=== PATIENT | female | born 1990 | race Caucasian/White ===

== ENCOUNTER 2016-10-20 13:11 | Inpatient (IN) | payer OTHER ==
--- NOTE | 2016-10-20 13:46 | C.PDOC ---
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 pt was seen by oral surgeon on , has sutures on right side removed with purulent discharge per patient; pt was given an iv dose of clinamycin in office yesterday and sent home on clindamycin in addition to amoxicillin. pt sts swellng worse today; surgeon not in office today, and pt sent to ED for further evaluation. Time Seen by Provider: 10/20/16 13:23 Chief Complaint (Nursing): Dental Pain History Per: Patient History/Exam Limitations: no limitations Onset/Duration Of Symptoms: Days (2) Current Symptoms Are (Timing): Worse Pain Scale Rating Of: 9 Quality: Positive for: "Pain" Recent travel outside of the [place]: No Past Medical History Reviewed: Historical Data, Nursing Documentation, Vital Signs Vital Signs: Last Vital Signs Temp 98.5 F 10/20/16 13:18 Pulse 81 10/20/16 13:18 Resp 18 10/20/16 13:18 BP 123/84 10/20/16 13:18 Pulse Ox 100 10/20/16 14:12 - Medical History PMH: Asthma, HTN Other PMH: lupus, rsd Surgical History: Other Surgeries: right arm lymph node removal Family History: States: Unknown Family Hx - Social History Hx Tobacco Use: No Hx Alcohol Use: Yes Hx Substance Use: No - Immunization History Hx Tetanus Toxoid Vaccination: No Hx Influenza Vaccination: No Hx Pneumococcal Vaccination: No Review Of Systems Constitutional: Positive for: Fever, Chills ENT: Positive for: Mouth Pain, Mouth Swelling. Negative for: Ear Pain, Throat Pain, Throat Swelling Cardiovascular: Negative for: Chest Pain Respiratory: Negative for: Cough Gastrointestinal: Positive for: Nausea. Negative for: Abdominal Pain Neurological: Negative for: Weakness, Numbness Physical Exam - Physical Exam Appears: Non-toxic, Toxic Skin: Warm, Dry Head: Atraumatic, Normacephalic Eye(s): bilateral: Normal Inspection Teeth: Other (bilateral facial swelling, right more than left. right side face warm and firm to touch. pt unable to open mouth more than approx half inch due to pain. ) Neck: Normal ROM Chest: Symmetrical, No Tenderness Cardiovascular: Rhythm Regular, No Murmur Respiratory: Normal Breath Sounds, No Rales, No Rhonchi, No Stridor, No Wheezing Neurological/Psych: Oriented x3, Normal Speech, Normal Cognition ED Course And Treatment - Laboratory Results Result Diagrams: 10/20/16 13:58 10/20/16 13:58 Urine POC: Negative O2 Sat by Pulse Oximetry: 100 Medical Decision Making Medical Decision Making: discussed with Dr Galeas; requesting admission for iv antibiotic for facial cellulitis and dental abscess. Disposition Discussed With .: Minerva Galeas Doctor Will See Patient In The: Hospital - Disposition Disposition: HOSPITALIZED Disposition Time: 14:41 Condition: STABLE - Clinical Impression Clinical Impression: Dental abscess, Facial cellulitis Decision To Admit - Pt Status Changed To: Hospital Disposition Of: Observation - . Bed Request Type: Regular Admitting Physician: Minerva Galeas Patient Diagnosis: Dental abscess, Facial cellulitis
[2016-10-20 14:04] LABS: BASO # 0.1 K/uL (0.0-0.2); BASO % 0.5 % (0.0-2.0); EOS # 0.1 K/uL (0.0-0.7); EOS % 1.1 % (0.0-4.0); HEMATOCRIT 31.6 % (34.0-47.0); LYMPH # 1.3 K/uL (1.0-4.3); LYMPH % 12.7 % (20.0-40.0); MEAN CELL VOLUME 85.7 fL (81.0-99.0); MEAN CORPUSCULAR HEMOGLOBIN 28.6 pg (27.0-31.0); MEAN CORPUSCULAR HGB CONC 33.3 g/dL (33.0-37.0); MEAN PLATELET VOLUME 7.9 fL (7.2-11.7); MONO # 0.8 K/uL (0.0-0.8); MONO % 7.3 % (0.0-10.0); RED CELL DISTRIBUTION WIDTH 14.1 % (11.5-14.5); WHITE BLOOD COUNT 10.3 K/uL (4.8-10.8)
[2016-10-20] MEDS ORDERED: Bupivacaine 0.5% Inj(30mL) INFIL ONE (14:04)
[2016-10-20] MEDS ORDERED: Clindamycin 600mg/50ml D5W 600 MG/50 ML VIAL IVPB ONE (14:10)
[2016-10-20 14:13] LABS: CHLORIDE 100 mmol/L (98-107)
[2016-10-20 14:14] LABS: SODIUM 136 mmol/L (132-148)
[2016-10-20 14:15] LABS: POTASSIUM 4.8 mmol/L (3.6-5.2)
[2016-10-20 14:16] LABS: GFR AFRICAN-AMERICAN > 60
[2016-10-20 14:17] LABS: BLOOD UREA NITROGEN 6 mg/dL (7-17); CALCIUM 8.6 mg/dl (8.6-10.4); CARBON DIOXIDE 27 mmol/L (22-30); GLUCOSE,RANDOM 78 mg/dL (65-105)
[2016-10-20] MEDS ORDERED: HYDROmorphone 0.5 mg/0.5 ml ISec IVP STA (14:35)
[2016-10-20] MEDS ORDERED: HYDROmorphone 1 mg/ml ISec ONE (14:39)
[2016-10-20] MEDS ORDERED: Sodium Chloride 0.9% 1,000 ML IV SCH (15:45)
--- NOTE | 2016-10-20 16:12 | CT ---
PROCEDURE: CT scan maxillofacial skeleton dated 10/20/2016. HISTORY: Right-sided facial swelling s/p dental extraction COMPARISON: No prior TECHNIQUE: Contiguous axial CT images of the maxillofacial bones were obtained. Coronal and sagittal reformats were generated. Radiation dose: Total exam DLP = 695.22 mGy-cm. This CT exam was performed using one or more of the following dose reduction techniques: Automated exposure control, adjustment of the mA and/or kV according to patient size, and/or use of iterative reconstruction technique. FINDINGS: The current study reveals an and ill-defined soft tissue area of swelling/infiltration along the buccal surface of the right mandible and overlying subcutaneous tissues of the right cheek. There also appears to be small amount of fluid and bubbles of air. Findings felt to represent a small early abscess. This area measures approximately 15.4 x 6 mm on and best seen on axial image number [id number]. There also appear to be induration of the overlying master muscle and subcutaneous infiltration suggesting an overlying cellulitis. . Soft tissue air and some bubbles of air fill residual sockets (presumably related to extraction of posterior molar teeth bilaterally) along the posterior not mandible bilaterally. . The infiltration changes extend inferiorly into the subcutaneous fat in the right submandibular region. The left nilo mandible outpatient are study is degraded holes air but that distal abscess of the right These findings were discussed with emergency room RACHEL Carmichael at approximately 4:07 p.m. with written down and read back verification. . The paranasal sinuses are well-developed and currently well-aerated. No fluid levels seen to suggest acute sinusitis. Minor mucosal thickening both maxillary antra as well as a few ethmoid air cells. Orbits and contents grossly unremarkable Impression: There is a small abscess along the buccal surface right mandible with overlying soft tissue swelling/induration and infiltration of the subcutaneous fat consistent with cellulitis is well. Status post bilateral last mandibular molar teeth and/or wisdom teeth extraction as above. Emergency room PA aware of these findings.
[2016-10-20] MEDS ORDERED: HYDROmorphone 0.5 mg/0.5 ml ISec IVP PRN (18:33)
[2016-10-20] MEDS: Dextrose 5%/0.45% NS 1,000 ML IV SCH (19:00)
[2016-10-20] MEDS ORDERED: DiphenhydrAMINE 50 mg/ml Inj IVP STA (20:08)
[2016-10-20] MEDS: Clindamycin 600mg/50ml D5W 600 MG/50 ML VIAL IVPB SCH (21:07)
[2016-10-21] MEDS: Clindamycin 600mg/50ml D5W 600 MG/50 ML VIAL IVPB SCH ×4 (01:17→20:00)
[2016-10-21] MEDS: Dextrose 5%/0.45% NS 1,000 ML IV SCH ×2 (06:42→15:04)
[2016-10-21 08:09] LABS: BASO % 0.1 % (0.0-2.0); EOS # 0.2 K/uL (0.0-0.7); EOS % 2.8 % (0.0-4.0); HEMATOCRIT 28.8 % (34.0-47.0); LYMPH # 0.9 K/uL (1.0-4.3); LYMPH % 14.2 % (20.0-40.0); MEAN CELL VOLUME 85.8 fL (81.0-99.0); MEAN CORPUSCULAR HEMOGLOBIN 28.7 pg (27.0-31.0); MEAN CORPUSCULAR HGB CONC 33.4 g/dL (33.0-37.0); MEAN PLATELET VOLUME 8.3 fL (7.2-11.7); MONO # 0.9 K/uL (0.0-0.8); MONO % 13.7 % (0.0-10.0); RED CELL DISTRIBUTION WIDTH 14.1 % (11.5-14.5); WHITE BLOOD COUNT 6.5 K/uL (4.8-10.8)
[2016-10-21 08:18] LABS: CHLORIDE 102 mmol/L (98-107); POTASSIUM 3.5 mmol/L (3.6-5.2); SODIUM 136 mmol/L (132-148)
[2016-10-21 08:20] LABS: GFR AFRICAN-AMERICAN > 60
[2016-10-21 08:21] LABS: ALB/GLOB RATIO 0.9 (1.0-2.1); ALKALINE PHOSPHATASE 70 U/L (38-126); ALT/SGPT 12 U/L (9-52); AST/SGOT 22 U/L (14-36); BILIRUBIN,TOTAL 0.7 mg/dL (0.2-1.3); BLOOD UREA NITROGEN 4 mg/dL (7-17); CALCIUM 8.4 mg/dl (8.6-10.4); CARBON DIOXIDE 28 mmol/L (22-30); GLUCOSE,RANDOM 85 mg/dL (65-105); TOTAL PROTEIN 6.8 g/dL (6.3-8.3)
[2016-10-21] MEDS ORDERED: Oxycodone/Acetaminophen 5/325 mg Tab PO PRN (08:52)
[2016-10-21] MEDS ORDERED: Potassium Chloride 20 mEq/15 ml LIQ UD PO STA (11:39)
[2016-10-21] MEDS ORDERED: Piperacillin/Tazobact 3.375 gm 100 ML IVPB SCH (12:00)
[2016-10-21] MEDS ORDERED: Piperacill/Tazo 3.375gm in Dex 3.375 GM/50 ML BAG IVPB SCH (13:00)
--- NOTE | 2016-10-21 15:23 | CP.PCM.CON ---
History of Present Illness - History of Present Illness History of Present Illness: dictated Past Patient History - Infectious Disease Hx of Infectious Diseases: None - Past Medical History & Family History Past Medical History?: Yes - Past Social History Smoking Status: Never Smoked - CARDIAC Hx Hypertension: Yes - PULMONARY Hx Asthma: Yes - ENDOCRINE/METABOLIC Hx Systemic Lupus Erythematosus: Yes - MUSCULOSKELETAL/RHEUMATOLOGICAL Hx Falls: No Other/Comment: rsd - PSYCHIATRIC Hx Substance Use: No - SURGICAL HISTORY Hx Section: Yes (x2) Other/Comment: csyt and fibroid removal, 2 nerve blocks ,, lymph node removed from right underarm. - ANESTHESIA Hx Anesthesia: Yes Hx Anesthesia Reactions: No Hx Malignant Hyperthermia: No Meds Allergies/Adverse Reactions: Allergies Allergy/AdvReac Type Severity Reaction Status Date / Time iodine Allergy Verified 09/29/15 23:16 morphine Allergy Verified 10/20/16 13:59 shellfish derived Allergy Verified 10/20/16 13:59 - Medications Medications: Current Medications Diphenhydramine HCl (Benadryl) 25 mg IVP Q6 PRN PRN Reason: Itching / Pruritus Clindamycin Phosphate (Cleocin) 600 mg in 50 mls @ 100 mls/hr IVPB Q6H [facility] Last Admin: 10/21/16 13:13 Dose: 100 mls/hr Dextrose/Sodium Chloride (Dextrose 5%/0.45% Ns 1000 Ml) 1,000 mls @ 100 mls/hr IV .Q10H [facility] Last Admin: 10/21/16 15:04 Dose: Not Given Piperacillin Sod/Tazobactam Sod (Zosyn 3.375 Gm Iv Premix) 3.375 gm in 50 mls @ 100 mls/hr IVPB Q6H [facility] Ketorolac Tromethamine (Toradol) 15 mg IVP Q8 [facility] Last Admin: 10/21/16 14:53 Dose: 15 mg Oxycodone/Acetaminophen (Percocet 5/325 Mg Tab) 1 tab PO Q4H PRN PRN Reason: Pain, moderate (4-7) Stop: 10/24/16 08:53 Last Admin: 10/21/16 09:20 Dose: 1 tab Pneumococcal Polyvalent Vaccine (Pneumovax 23 Vaccine) 0.5 ml IM .ONCE ONE Stop: 10/22/16 10:01 Results - Vital Signs Recent Vital Signs: Last Vital Signs Temp 98.1 F 10/21/16 08:00 Pulse 76 10/21/16 08:00 Resp 20 10/21/16 08:00 BP 112/72 10/21/16 08:00 Pulse Ox 100 10/21/16 08:00 - Labs Result Diagrams: 10/21/16 07:49 10/21/16 07:49 Labs: Laboratory Results - last 24 hr 10/21/16 10/21/16 07:49 07:49 WBC 6.5 RBC 3.35 L Hgb 9.6 L Hct 28.8 L MCV 85.8 MCH 28.7 MCHC 33.4 RDW 14.1 Plt Count 262 MPV 8.3 Neut % (Auto) 69.2 Lymph % (Auto) 14.2 L [place] % (Auto) 13.7 H Eos % (Auto) 2.8 Baso % (Auto) 0.1 Neut # 4.5 Lymph # 0.9 L [place] # 0.9 H Eos # 0.2 Baso # 0.0 ESR 47 H Sodium 136 Potassium 3.5 L Chloride 102 Carbon Dioxide 28 Anion Gap 10 BUN 4 L Creatinine 0.6 L Est GFR ( Amer) > 60 Est GFR (Non-Af Amer) > 60 Random Glucose 85 Calcium 8.4 L Total Bilirubin 0.7 AST 22 ALT 12 Alkaline Phosphatase 70 Total Protein 6.8 Albumin 3.1 L D Globulin 3.6 Albumin/Globulin Ratio 0.9 L
[2016-10-21] MEDS: HYDROmorphone 0.5 mg/0.5 ml ISec IVP PRN ×2 (17:45→21:53)
[2016-10-21] MEDS: Piperacill/Tazo 3.375gm in Dex 3.375 GM/50 ML BAG IVPB SCH (19:00)
[2016-10-22] MEDS: Dextrose 5%/0.45% NS 1,000 ML IV SCH ×3 (01:35→21:14)
[2016-10-22] MEDS: Piperacill/Tazo 3.375gm in Dex 3.375 GM/50 ML BAG IVPB SCH ×4 (01:40→22:00)
[2016-10-22] MEDS: Clindamycin 600mg/50ml D5W 600 MG/50 ML VIAL IVPB SCH ×4 (01:40→21:57)
[2016-10-22] MEDS: HYDROmorphone 0.5 mg/0.5 ml ISec IVP PRN ×5 (01:46→21:00)
--- NOTE | 2016-10-22 08:21 | CON ---
DATE: 10/21/2016 HISTORY OF PRESENT ILLNESS: The patient is a 26-year-old. 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 She gives history of h aving tooth extractions on Sunday and had worse pain and she had all 4 teeth extracted and she went back a couple of times to see the dentist and she was having a lot of pain. Initially, she was sent home on clindamycin and she was given clindamycin in the office. She went on amoxicillin, but her sw elling was worsening and then she decided to come to the hospital on 10/20/2016 and I am asked to gonzalo luate her. She still has swelling on the right side of her right face and she was getting soft food yesterday. She still says she has worse pain and her pain threshold is kind of low because she has h ad a lot of ____ pain medications for her RSD. She was on clindamycin 600 mg q.6 hours. She also gi ves me history of asthma and hypertension, but asthma is controlled at this time. Has history of lup us, RSD. She has had ____. She also had right arm lymph nodes removed. ALLERGIES: IODINE, MORPHINE, SHELLFISH. SOCIAL HISTORY: Significant for alcohol use, denies any substance abuse. REVIEW OF SYSTEMS: She came in with fever and chills. She did complain of mouth pain, swelling and difficulty and throat pain, but has no chest pain, no cough, no nausea, no vomiting, no abdominal felipa n. She does suffer from weakness in her right arm and thumb, right arm numbness because of the RSD. She does have history of lupus and she told me ____ story that she went every day back to dentist's office and was given antibiotics orally, but she did not improve and she decided to come here. PHYSICAL EXAMINATION: VITAL SIGNS: T-max is 98.8, pulse is 69, blood pressure 121/69, respirations are 20. HEENT: Head is atraumatic, normocephalic. Pupils are reacting to light. Has fullness on the right face and intraorbital as well as face appears swollen, but left facial swelling has decreased markedl y. NECK: Supple, no swelling in the neck noted at this time. LUNGS: Clear. No crackles or rales present. HEART: S1, S2 is regular. ABDOMEN: Soft, nontender, no guarding, no rigidity present. EXTREMITIES: No edema, clubbing or cyanosis. LABORATORY DATA: She came with a white count of 10.3, now it is 6.5. Hemoglobin 9.6, hematocrit 28. 8. ____ platelet count is 262. She is anemic. Sodium is 136, potassium 3.5, chloride 102, CO2 is 2 8, anion gap is 10, BUN is 4, creatinine is 0.6. Micro cantu, her blood cultures are negative; so far , two of them and she had a CAT scan of the maxillofacial CAT scan done and that shows there is a sma ll abscess along the buccal surface right mandible with overlying soft tissue swelling, induration an d infiltration of the subcutaneous fat consistent with cellulitis as well. Status post bilateral man dibular molar tooth and/or wisdom tooth extraction as above. So, she also says that there were some sutures on the right side. They were removed and she was getting this weird taste in her mouth as if she has infection and feels kind of scared because she has lupus. Her medications at the present ti me are clindamycin 600 q.6. She is also on Benadryl, which was given one time; Dilaudid, Toradol, an d Zosyn was just added today around 5:00 because she does complain of so much pain and swelling on th e right side. So, at this time, I think she is well covered with penicillin with the third generation penicillin an d clindamycin. We will continue present treatment. She does have a buccal abscess and we will wait to see if swelling of her face go down and the contour of the face return and once she has no difficu lty swallowing and is able to open her mouth well, then probably we can switch to oral antibiotics, b ut we will follow. Seema Ralph MD cc: [id number] TT: 10/22/2016 08:20:28 Confirmation # [id number] Dictation # [id number]
[2016-10-22] MEDS ORDERED: HYDROmorphone 0.5 mg/0.5 ml ISec IM STA (09:13)
[2016-10-22] MEDS ORDERED: Pneumococcal 23-Valent Vaccine IM ONE (10:00)
[2016-10-22 11:23] LABS: HEMATOCRIT 32.1 % (34.0-47.0); MEAN CELL VOLUME 85.5 fL (81.0-99.0); MEAN CORPUSCULAR HEMOGLOBIN 28.2 pg (27.0-31.0); MEAN PLATELET VOLUME 7.9 fL (7.2-11.7); RED CELL DISTRIBUTION WIDTH 14.1 % (11.5-14.5); WHITE BLOOD COUNT 5.6 K/uL (4.8-10.8)
--- NOTE | 2016-10-22 14:21 | CT ---
CT MAXILLOFACIAL HISTORY: ABSCESS. EVALUATE FOR WORSENING SWELLING. COMPARISON: CT DATED 10/20/2016 TECHNIQUE: Multiple contiguous axial images were performed through the maxillofacial soft tissues without the use intravenous contrast. Subsequently sagittal reformatted images were obtained. Findings: Again identified are soft tissue air and some bubbles of air filling residual sockets, presumably related to extraction of posterior molar teeth bilaterally, along the posterior mandibles bilaterally. Again identified is an ill-defined soft tissue area of swelling and infiltration along the buccal surface the right mandible and overlying soft tissues of the right cheek. Without contrast this area is difficult to evaluate however it appears to measure up to 2.9 x 0.6 centimeters previously measuring 1.5 x 0.6 centimeters demonstrating interval enlargement. Again identified are fluid as well as bubbles of air within the region. These findings are concerning for a worsening soft tissue abscess/phlegmon collection. Persistent induration of the overlying masseter muscle and subcutaneous infiltration suggesting an overlying cellulitis. The infiltrative changes extend inferiorly into the subcutaneous fat in the right submandibular region. Reticulation, air, fluid, and edema also extending to the level of the anterior lateral right maxilla with fat stranding and fluid. Mild mucosal thickening of the bilateral maxillary sinuses. Remainder of the paranasal sinuses and mastoid air cells are preserved. Remainder of the visualized osseous structures are preserved. Orbital globes are preserved. Impression: 1. Again identified are soft tissue air and some bubbles of air filling residual sockets, presumably related to extraction of posterior molar teeth bilaterally, along the posterior mandibles bilaterally. 2. Again identified is an ill-defined soft tissue area of swelling and infiltration along the buccal surface the right mandible and overlying soft tissues of the right cheek. Without contrast this area is difficult to evaluate however it appears to measure up to 2.9 x 0.6 centimeters previously measuring 1.5 x 0.6 centimeters demonstrating interval enlargement. Again identified are fluid as well as bubbles of air within the region. These findings are concerning for a worsening soft tissue abscess/phlegmon collection. Persistent induration of the overlying masseter muscle and subcutaneous infiltration suggesting an overlying cellulitis. The infiltrative changes extend inferiorly into the subcutaneous fat in the right submandibular region. Reticulation, air, fluid, and edema also extending to the level of the anterior lateral right maxilla with fat stranding and fluid. 3. Mild mucosal thickening of the bilateral maxillary sinuses.
[2016-10-22] MEDS ORDERED: Lidocaine 2% Inj (20ml) ONE (18:20)
[2016-10-22] MEDS ORDERED: Dexamethasone 4 mg/1 ml ONE (18:20)
[2016-10-22] MEDS ORDERED: Bupivacaine-Epi 0.5%-1:200,000 PF Inj ONE (18:21)
[2016-10-22] MEDS ORDERED: Succinylcholine Chloride 20 mg/ml Syr (5 ml) IV ONE (18:27)
[2016-10-22] MEDS ORDERED: Rocuronium 10 mg/ml (5 ml) ONE (18:27)
[2016-10-22] MEDS ORDERED: Propofol 10 mg/ml Inj (20 ML) ONE (18:27)
[2016-10-22] MEDS ORDERED: Midazolam 2 MG/2 ML VIAL ONE (18:27)
[2016-10-22] MEDS ORDERED: Piperacillin/Tazobact 3.375 gm 100 ML IVPB ONE (19:24)
[2016-10-22] MEDS ORDERED: Neostigmine Methylsulfate 3mg/3ml Syringe IV ONE (19:39)
[2016-10-22] MEDS ORDERED: HYDROmorphone 1 mg/ml ISec ONE (20:56)
[2016-10-23] MEDS: Piperacill/Tazo 3.375gm in Dex 3.375 GM/50 ML BAG IVPB SCH ×4 (01:40→18:17)
[2016-10-23] MEDS: Clindamycin 600mg/50ml D5W 600 MG/50 ML VIAL IVPB SCH ×4 (01:42→20:00)
[2016-10-23] MEDS: HYDROmorphone 0.5 mg/0.5 ml ISec IVP PRN ×5 (05:38→23:39)
[2016-10-23] MEDS: Dextrose 5%/0.45% NS 1,000 ML IV SCH ×2 (07:41→18:19)
[2016-10-23] MEDS: Albuterol-Ipratrop 3 mg / 0.5 (3 ml) UD INH SCH ×2 (13:41→19:57)
--- NOTE | 2016-10-23 14:19 | CP.PCM.PN ---
Subjective - Date & Time of Evaluation Date of Evaluation: 10/23/16 Time of Evaluation: 02:10 - Subjective Subjective: dictated Objective - Vital Signs/Intake and Output Vital Signs (last 24 hours): Temp Pulse Resp BP Pulse Ox 98.4 F 74 20 120/80 97 10/23/16 07:54 10/23/16 07:54 10/23/16 07:54 10/23/16 07:54 10/23/16 07:54 Intake and Output: 10/23/16 10/23/16 06:59 18:59 Intake Total 400 Output Total 300 Balance 100 - Medications Medications: Current Medications Albuterol/Ipratropium (Duoneb 3 Mg/0.5 Mg (3 Ml) Ud) 3 ml INH RQ6 [facility] Last Admin: 10/23/16 13:41 Dose: 3 ml Diphenhydramine HCl (Benadryl) 25 mg IVP Q6 PRN PRN Reason: Itching / Pruritus Hydromorphone HCl (Dilaudid) 0.5 mg IVP Q4H PRN PRN Reason: Pain, moderate (4-7) Last Admin: 10/23/16 14:15 Dose: 0.5 mg Clindamycin Phosphate (Cleocin) 600 mg in 50 mls @ 100 mls/hr IVPB Q6H [facility] Last Admin: 10/23/16 14:12 Dose: 100 mls/hr Dextrose/Sodium Chloride (Dextrose 5%/0.45% Ns 1000 Ml) 1,000 mls @ 100 mls/hr IV .Q10H [facility] Last Admin: 10/23/16 07:41 Dose: Not Given Piperacillin Sod/Tazobactam Sod (Zosyn 3.375 Gm Iv Premix) 3.375 gm in 50 mls @ 100 mls/hr IVPB Q6H [facility] Last Admin: 10/23/16 12:07 Dose: 100 mls/hr Ondansetron HCl (Zofran Inj) 4 mg IVP Q6H PRN PRN Reason: Nausea/Vomiting Last Admin: 10/21/16 20:55 Dose: 4 mg
--- NOTE | 2016-10-23 15:05 | PN ---
DATE: 10/23/2016 INFECTIOUS DISEASE FOLLOWUP Events noted. The patient had another CAT scan done, which showed enlarging abscess. She went to th e OR earlier yesterday. The OR report 10/23 - she just went to the OR for I and D of submandibular sp sonia infection, rule out impending Antwan's. She was angina. The patient is right now on Zosyn as we ll as Flagyl. She is using trocar to take away the secretions. She also has a packing. The right f sonia appears full. PHYSICAL EXAMINATION: VITAL SIGNS: T-max is 98.4, pulse 74, blood pressure 120/80 . Respirations are 20. She is also gett ing respiratory treatments. HEENT: Head is atraumatic. Right facial swelling present, and events noted. NECK: Is otherwise supple. LUNGS: Clear. No crackles or rales present. HEART: S1, S2 regular. ABDOMEN: Soft, nontender. EXTREMITIES: No edema, clubbing, or cyanosis. LABORATORY DATA: White count is 5.6, hemoglobin 10.6, hematocrit 32.1. Platelet count is 294. BUN is 4. Creatinine is 0.6. Blood cultures are negative. Wound culture was sent yesterday, which is p ending at this time. The patient's last CAT scan report, which was from yesterday again identified soft tissue and some bu bbles ____ related to extraction of posterior molar teeth bilaterally along the posterior mandibula b ilaterally, and they said there was worsening soft tissue absence and phlegmon collection, persistent induration over the overlying masseter muscle and subcutaneous infiltration, suggesting an overlying cellulitis. Infiltrative changes extend inferiorly into the subcutaneous fat in the right submandib ular region. ____ air fluid and edema also extended to the level of the anterior lateral right maxil jossue with fat stranding and fluid. Mild mucosal thickening of the bilateral maxillary sinuses also p resent. I think she did have an I and D done, does not look to be in any respiratory distress at this time. MEDICATIONS: She is on Zosyn, Zofran, Dilaudid, Benadryl, Cleocin. She does insist on her pain medi cations, tells me that she has lupus, and she has RSD, so that I will leave it to the primary and kolby l follow. Seema Ralph MD cc: [id number] TT: 10/23/2016 15:04:53 Confirmation # [id number] Dictation # [id number] jn
[2016-10-23 19:59] LABS: HEMATOCRIT 26.7 % (34.0-47.0); MEAN CELL VOLUME 84.3 fL (81.0-99.0); MEAN CORPUSCULAR HEMOGLOBIN 27.9 pg (27.0-31.0); MEAN CORPUSCULAR HGB CONC 33.1 g/dL (33.0-37.0); MEAN PLATELET VOLUME 8.1 fL (7.2-11.7); RED CELL DISTRIBUTION WIDTH 13.8 % (11.5-14.5)
[2016-10-24] MEDS: Piperacill/Tazo 3.375gm in Dex 3.375 GM/50 ML BAG IVPB SCH ×4 (00:03→18:33)
[2016-10-24] MEDS: Clindamycin 600mg/50ml D5W 600 MG/50 ML VIAL IVPB SCH ×4 (01:04→20:21)
[2016-10-24] MEDS: Albuterol-Ipratrop 3 mg / 0.5 (3 ml) UD INH SCH ×4 (02:12→19:50)
[2016-10-24] MEDS: HYDROmorphone 0.5 mg/0.5 ml ISec IVP PRN ×4 (06:21→22:31)
[2016-10-24] MEDS: Dextrose 5%/0.45% NS 1,000 ML IV SCH ×3 (06:23→22:27)
[2016-10-24 06:28] LABS: BASO % 0.2 % (0.0-2.0); EOS % 0.3 % (0.0-4.0); HEMATOCRIT 26.3 % (34.0-47.0); LYMPH # 1.7 K/uL (1.0-4.3); LYMPH % 22.3 % (20.0-40.0); MEAN CELL VOLUME 84.2 fL (81.0-99.0); MEAN CORPUSCULAR HEMOGLOBIN 28.7 pg (27.0-31.0); MEAN CORPUSCULAR HGB CONC 34.1 g/dL (33.0-37.0); MEAN PLATELET VOLUME 7.9 fL (7.2-11.7); MONO # 0.6 K/uL (0.0-0.8); MONO % 7.6 % (0.0-10.0); WHITE BLOOD COUNT 7.4 K/uL (4.8-10.8)
[2016-10-24] MEDS: DiphenhydrAMINE 50 mg/ml Inj IVP PRN ×4 (06:41→17:50)
[2016-10-24 07:01] LABS: CHLORIDE 100 mmol/L (98-107); SODIUM 135 mmol/L (132-148)
[2016-10-24 07:02] LABS: POTASSIUM 3.2 mmol/L (3.6-5.2)
[2016-10-24 07:04] LABS: GFR AFRICAN-AMERICAN > 60
[2016-10-24 07:05] LABS: BLOOD UREA NITROGEN 5 mg/dL (7-17); CALCIUM 8.1 mg/dl (8.6-10.4); CARBON DIOXIDE 27 mmol/L (22-30); GLUCOSE,RANDOM 100 mg/dL (65-105)
[2016-10-24] MEDS ORDERED: Potassium Chloride 20 mEq ER Tab PO ONE ×2 (14:00)
--- NOTE | 2016-10-24 15:34 | CP.PCM.PN ---
Subjective - Date & Time of Evaluation Date of Evaluation: 10/24/16 Time of Evaluation: 03:20 - Subjective Subjective: dictated Objective - Vital Signs/Intake and Output Vital Signs (last 24 hours): Temp Pulse Resp BP Pulse Ox 97.6 F 67 20 114/70 98 10/24/16 08:31 10/24/16 08:31 10/24/16 08:31 10/24/16 08:31 10/24/16 08:31 Intake and Output: 10/24/16 10/24/16 06:59 18:59 Intake Total 2460 Output Total 500 Balance 1959 - Medications Medications: Current Medications Albuterol/Ipratropium (Duoneb 3 Mg/0.5 Mg (3 Ml) Ud) 3 ml INH RQ6 [facility] Last Admin: 10/24/16 13:20 Dose: Not Given Diphenhydramine HCl (Benadryl) 25 mg IVP Q6 PRN PRN Reason: Itching / Pruritus Last Admin: 10/24/16 11:18 Dose: 25 mg Hydromorphone HCl (Dilaudid) 0.5 mg IVP Q4H PRN PRN Reason: Pain, moderate (4-7) Last Admin: 10/24/16 11:09 Dose: 0.5 mg Clindamycin Phosphate (Cleocin) 600 mg in 50 mls @ 100 mls/hr IVPB Q6H [facility] Last Admin: 10/24/16 14:46 Dose: 100 mls/hr Dextrose/Sodium Chloride (Dextrose 5%/0.45% Ns 1000 Ml) 1,000 mls @ 100 mls/hr IV .Q10H [facility] Last Admin: 10/24/16 13:41 Dose: Not Given Piperacillin Sod/Tazobactam Sod (Zosyn 3.375 Gm Iv Premix) 3.375 gm in 50 mls @ 100 mls/hr IVPB Q6H [facility] Last Admin: 10/24/16 12:04 Dose: 100 mls/hr Ondansetron HCl (Zofran Inj) 4 mg IVP Q6H PRN PRN Reason: Nausea/Vomiting Last Admin: 10/21/16 20:55 Dose: 4 mg - Labs Labs: 10/24/16 06:16 10/24/16 06:16
--- NOTE | 2016-10-24 16:01 | PN ---
DATE: 10/24/2016 SUBJECTIVE: The patient is feeling a little better, but still has right jaw swelling. She still has the packing. The face contour has not returned yet, but seems to be improving. She has no fever. She is on Zosyn and clindamycin.. PHYSICAL EXAMINATION: VITAL SIGNS: T-max is 97.6, pulse 67, blood pressure 114/70, respirations are 20. She says she is n ot able to eat yet, but I guess not from this site, but the other side, I told her to try. HEENT: Head is atraumatic, normocephalic. She denies any shortness of breath, no asthma. She is ge tting respiratory treatments. NECK: Supple. Right face appears swollen. LUNGS: Clear. No crackles or rales present. HEART: S1, S2 is regular. ABDOMEN: Soft, nontender, no guarding, no rigidity present. EXTREMITIES: Have no edema, clubbing or cyanosis. LABORATORY DATA: White count is 7.4, hemoglobin 9, hematocrit 26.3, platelet count is 283. Sodium i s 135, potassium 3.2, chloride is 100, CO2 is 27, creatinine is 0.6. Micro cantu, her wound culture c octavio out normal saprophytic jyoti. IMPRESSION AND PLAN: She had postoperative abscess after wisdom tooth extraction and is on IV antibi otics at this time and she is also immunosuppressed because of lupus. We will continue clindamycin a s well as Zosyn for now and reevaluate again tomorrow. She is also being followed by the dentist, so we will see what she has to say. Seema Ralph MD cc: [id number] TT: 10/24/2016 16:01:11 Confirmation # [id number] Dictation # [id number]
[2016-10-25] MEDS: DiphenhydrAMINE 50 mg/ml Inj IVP PRN (00:02)
[2016-10-25] MEDS: Piperacill/Tazo 3.375gm in Dex 3.375 GM/50 ML BAG IVPB SCH ×2 (00:03→06:03)
[2016-10-25] MEDS: Albuterol-Ipratrop 3 mg / 0.5 (3 ml) UD INH SCH ×3 (01:06→14:04)
[2016-10-25] MEDS: Clindamycin 600mg/50ml D5W 600 MG/50 ML VIAL IVPB SCH ×2 (02:25→07:05)
[2016-10-25] MEDS: HYDROmorphone 0.5 mg/0.5 ml ISec IVP PRN ×2 (02:31→10:55)
[2016-10-25 08:18] VITALS: BP 109/66; PULSE 83; RESP 20; TEMP 98.5; O2SAT 100
[2016-10-25] MEDS: Dextrose 5%/0.45% NS 1,000 ML IV SCH (08:45)
--- NOTE | 2016-10-25 11:56 | CP.PCM.PN ---
Subjective - Date & Time of Evaluation Date of Evaluation: 10/25/16 Time of Evaluation: 11:00 - Subjective Subjective: Alert, orientedx3, facial swelling improving, no distress. Objective - Vital Signs/Intake and Output Vital Signs (last 24 hours): Temp Pulse Resp BP Pulse Ox 98.5 F 83 20 109/66 100 10/25/16 08:17 10/25/16 08:17 10/25/16 08:17 10/25/16 08:17 10/25/16 08:17 Intake and Output: 10/25/16 10/25/16 06:59 18:59 Intake Total 2580 Output Total 600 Balance 1979 - Medications Medications: Current Medications Albuterol/Ipratropium (Duoneb 3 Mg/0.5 Mg (3 Ml) Ud) 3 ml INH RQ6 [facility] Last Admin: 10/25/16 07:52 Dose: Not Given Diphenhydramine HCl (Benadryl) 25 mg IVP Q6 PRN PRN Reason: Itching / Pruritus Last Admin: 10/25/16 00:02 Dose: 25 mg Hydromorphone HCl (Dilaudid) 0.5 mg IVP Q4H PRN PRN Reason: Pain, moderate (4-7) Last Admin: 10/25/16 10:55 Dose: 0.5 mg Clindamycin Phosphate (Cleocin) 600 mg in 50 mls @ 100 mls/hr IVPB Q6H [facility] Last Admin: 10/25/16 07:05 Dose: 100 mls/hr Dextrose/Sodium Chloride (Dextrose 5%/0.45% Ns 1000 Ml) 1,000 mls @ 100 mls/hr IV .Q10H [facility] Last Admin: 10/25/16 08:45 Dose: Not Given Piperacillin Sod/Tazobactam Sod (Zosyn 3.375 Gm Iv Premix) 3.375 gm in 50 mls @ 100 mls/hr IVPB Q6H [facility] Last Admin: 10/25/16 06:03 Dose: 100 mls/hr Ondansetron HCl (Zofran Inj) 4 mg IVP Q6H PRN PRN Reason: Nausea/Vomiting Last Admin: 10/21/16 20:55 Dose: 4 mg - Labs Labs: 10/24/16 06:16 10/24/16 06:16 Assessment and Plan - Assessment and Plan (Free Text) Assessment: Patient is discharge home as per DR Galeas. All meds including antibiotics and pain meds is called in to the pharmacy. Advised to follow up in 1 week.
--- NOTE | 2016-11-25 10:36 | CARD ---
APPROVED REPORT EKG Measurement Heart [id number] <Conclusion> Normal sinus rhythm Normal ECG
--- NOTE | 2017-01-11 12:18 | CP.PCM.HP ---
History of Present Illness - History of Present Illness History of Present Illness: Pt is a 26year OLD FEMALE PRESENTING WITH THE CC: Pain and swelling of the right face and cannot open my Mouth Exam: REveals swelling of the right angle of the mandible aproximately5-6 cm also pt presentd with severe trismus Diag: IMpending Ludiwigs Angina Plan Admit for IV antibiotics CT scan and Possible I&D in OR PMH; NEG ALERGIES; NKDA MEDS; NEG Physical EXam ; WNL Present on Admission - Present on Admission Any Indicators Present on Admission: Yes Review of Systems - Review of Systems Systems not reviewed;Unavailable: Respiratory Distress - Constitutional Constitutional: As Per HPI - EENT Eyes: As Per HPI Ears: As Per HPI Nose/Mouth/Throat: As Per HPI, Dental Pain, Dysphagia, Tongue Swelling - Breasts Breasts: As Per HPI - Cardiovascular Cardiovascular: As Per HPI - Respiratory Respiratory: As Per HPI - Gastrointestinal Gastrointestinal: As Per HPI - Genitourinary Genitourinary: As Per HPI - Reproductive: Female Reproductive:Female: As Per HPI - Menstruation Menstruation: As Per HPI - Musculoskeletal Musculoskeletal: As Per HPI - Integumentary Integumentary: As Per HPI - Neurological Neurological: As Per HPI - Psychiatric Psychiatric: As Per HPI - Endocrine Endocrine: As Per HPI - Hematologic/Lymphatic Hematologic: As Per HPI Past Patient History - Infectious Disease Hx of Infectious Diseases: None - Past Medical History & Family History Past Medical History?: Yes - Past Social History Smoking Status: Never Smoked - CARDIAC Hx Hypertension: Yes - PULMONARY Hx Asthma: Yes - ENDOCRINE/METABOLIC Hx Systemic Lupus Erythematosus: Yes - MUSCULOSKELETAL/RHEUMATOLOGICAL Hx Falls: No Other/Comment: rsd - PSYCHIATRIC Hx Substance Use: No - SURGICAL HISTORY Hx Section: Yes (x2) Other/Comment: csyt and fibroid removal, 2 nerve blocks ,, lymph node removed from right underarm. - ANESTHESIA Hx Anesthesia: Yes Hx Anesthesia Reactions: No Hx Malignant Hyperthermia: No Meds Allergies/Adverse Reactions: Allergies Allergy/AdvReac Type Severity Reaction Status Date / Time iodine Allergy Verified 09/29/15 23:16 morphine Allergy Verified 10/20/16 13:59 shellfish derived Allergy Verified 10/20/16 13:59 Results - Vital Signs Recent Vital Signs: Last Vital Signs Temp 98.5 F 10/25/16 08:17 Pulse 83 10/25/16 08:17 Resp 20 10/25/16 08:17 BP 109/66 10/25/16 08:17 Pulse Ox 100 10/25/16 08:17 - Labs Result Diagrams: 10/24/16 06:16 10/24/16 06:16
--- NOTE | 2017-01-11 12:22 | CP.PCM.DIS ---
Provider - Provider Date of Admission: 10/22/16 14:26 Attending physician: Minerva Galeas MD Time Spent in preparation of Discharge (in minutes): 62 Diagnosis - Discharge Diagnosis (1) Ludwigs angina Status: Acute Priority: High (2) Facial cellulitis Status: Acute Priority: High (3) Malaise and fatigue Status: Acute Priority: High Hospital Course - Lab Results Lab Results: Micro Results 10/22/16 20:00 Abscess - Mandible Gram Stain - Final 10/22/16 20:00 Abscess - Mandible Wound Culture - Final NORMAL SAPROPHYTIC LAMONT Most Recent Lab Values WBC 7.4 K/uL (4.8-10.8) 10/24/16 06:16 RBC 3.13 Mil/uL (3.80-5.20) L 10/24/16 06:16 Hgb 9.0 g/dL (11.0-16.0) L 10/24/16 06:16 Hct 26.3 % (34.0-47.0) L 10/24/16 06:16 MCV 84.2 fL (81.0-99.0) 10/24/16 06:16 MCH 28.7 pg (27.0-31.0) 10/24/16 06:16 MCHC 34.1 g/dL (33.0-37.0) 10/24/16 06:16 RDW 14.0 % (11.5-14.5) 10/24/16 06:16 Plt Count 283 K/uL (130-400) 10/24/16 06:16 MPV 7.9 fL (7.2-11.7) 10/24/16 06:16 Neut % (Auto) 69.6 % (50.0-75.0) 10/24/16 06:16 Lymph % (Auto) 22.3 % (20.0-40.0) 10/24/16 06:16 [place] % (Auto) 7.6 % (0.0-10.0) 10/24/16 06:16 Eos % (Auto) 0.3 % (0.0-4.0) 10/24/16 06:16 Baso % (Auto) 0.2 % (0.0-2.0) 10/24/16 06:16 Neut # 5.2 K/uL (1.8-7.0) 10/24/16 06:16 Lymph # 1.7 K/uL (1.0-4.3) 10/24/16 06:16 [place] # 0.6 K/uL (0.0-0.8) 10/24/16 06:16 Eos # 0.0 K/uL (0.0-0.7) 10/24/16 06:16 Baso # 0.0 K/uL (0.0-0.2) 10/24/16 06:16 ESR 47 mm/hr (0-20) H 10/21/16 07:49 Sodium 135 mmol/L (132-148) 10/24/16 06:16 Potassium 3.2 mmol/L (3.6-5.2) L 10/24/16 06:16 Chloride 100 mmol/L (98-107) 10/24/16 06:16 Carbon Dioxide 27 mmol/L (22-30) 10/24/16 06:16 Anion Gap 11 (10-20) 10/24/16 06:16 BUN 5 mg/dL (7-17) L 10/24/16 06:16 Creatinine 0.6 MG/DL (0.7-1.2) L 10/24/16 06:16 Est GFR ( Amer) > 60 10/24/16 06:16 Est GFR (Non-Af Amer) > 60 10/24/16 06:16 Random Glucose 100 mg/dL (65-105) 10/24/16 06:16 Calcium 8.1 mg/dl (8.6-10.4) L 10/24/16 06:16 Total Bilirubin 0.7 mg/dL (0.2-1.3) 10/21/16 07:49 AST 22 U/L (14-36) 10/21/16 07:49 ALT 12 U/L (9-52) 10/21/16 07:49 Alkaline Phosphatase 70 U/L (38-126) 10/21/16 07:49 Total Protein 6.8 g/dL (6.3-8.3) 10/21/16 07:49 Albumin 3.1 g/dL (3.5-5.0) L D 10/21/16 07:49 Globulin 3.6 gm/dL (2.2-3.9) 10/21/16 07:49 Albumin/Globulin Ratio 0.9 (1.0-2.1) L 10/21/16 07:49 Urine HCG, Qual Negative (NEGATIVE) 10/22/16 13:37 Discharge Plan - Follow Up Plan Condition: STABLE Disposition: HOME/ ROUTINE Instructions: Cellulitis (DC), Cellulitis (GEN) Referrals: Minerva Galeas DMD [Staff Provider] -
--- NOTE | 2017-01-12 06:32 | OP ---
PROCEDURE DATE: DESCRIPTION OF PROCEDURE: The patient laid supine on the operating room table. Anesthesia is started. The patient is intubated. Oral cavity is swabbed and throat pack is placed. Mouth block is placed. Incision is made on the right side of the retromolar pad area. Hemostat is used to gain access to the abscess. Lino drain approximately 4 cm long is placed into the site and secured with a gut 3-0 suture. Another incision is made on the lingual side of the mandible. Access is gained to the abscess using a hemostat. Rule drain approximately 4 cm in length is placed in the site and secured with a gut 3-0 suture. Throat pack is removed. Approximately 10 mL of suppuration pus is removed. A culture is taken, throat pack is removed, and the bite block is removed. Surgery is completed. Minerva Galeas DMD
== END 2016-10-25 13:00 | disposition home or self-care (01) | DRG 899 ==
LOC: C.ER 13:11 → C.9E 14:36 → C.5T 15:34 → C.9E 15:45 → C.3T 16:19 → OBSVTOIN 10-22 14:26
PROVIDERS: ADMIT Dentist; ATTEND Dentist
PROC: 0W950ZZ Drainage of Lower Jaw, Open Approach (ICD-10-PCS; principal; 2016-10-22 05:30)
DX: T81.4XXA Infection following a procedure, initial encounter (principal); K12.2 Cellulitis and abscess of mouth; G90.511 Complex regional pain syndrome I of right upper limb; M32.9 Systemic lupus erythematosus, unspecified; K04.7 Periapical abscess without sinus; I10 Essential (primary) hypertension; J45.909 Unspecified asthma, uncomplicated

== ENCOUNTER 2017-01-22 21:01 | Emergency (ER) | payer OTHER ==
[2017-01-22] MEDS ORDERED: Sodium Chloride 0.9% 1,000 ML IV ONE (21:55)
[2017-01-22] MEDS ORDERED: Sodium Chloride 0.9% 500 ML IV ONE (21:56)
[2017-01-22] MEDS ORDERED: Sodium Chloride 0.9% 2,000 ML ONE (22:04)
[2017-01-22] MEDS ORDERED: DiphenhydrAMINE 50 mg/ml Inj IVP STA (22:12)
[2017-01-22] MEDS ORDERED: DiphenhydrAMINE 50 mg/ml Inj ONE (22:15)
[2017-01-22 22:16] LABS: URINE BILIRUBIN NEGATIVE (NEGATIVE); URINE BLOOD NEGATIVE (NEGATIVE); URINE COLOR Yellow (YELLOW); URINE GLUCOSE (UA) NORMAL (Normal); URINE KETONE NEGATIVE (NEGATIVE); URINE LEUKOCYTE ESTERASE NEG Leu/uL (Negative); URINE PROTEIN NEGATIVE (NEGATIVE); URINE UROBILINOGEN NORMAL mg/dL (0.2-1.0); WBC URINE < 1 /hpf (0-5)
[2017-01-22 22:19] LABS: BASO % 0.1 % (0.0-2.0); EOS # 0.1 K/uL (0.0-0.7); EOS % 1.8 % (0.0-4.0); HEMATOCRIT 36.8 % (34.0-47.0); LYMPH # 0.7 K/uL (1.0-4.3); LYMPH % 17.3 % (20.0-40.0); MEAN CELL VOLUME 86.7 fL (81.0-99.0); MEAN CORPUSCULAR HEMOGLOBIN 29.1 pg (27.0-31.0); MEAN CORPUSCULAR HGB CONC 33.6 g/dL (33.0-37.0); MEAN PLATELET VOLUME 7.9 fL (7.2-11.7); MONO # 0.3 K/uL (0.0-0.8); RED CELL DISTRIBUTION WIDTH 14.7 % (11.5-14.5); WHITE BLOOD COUNT 4.2 K/uL (4.8-10.8)
[2017-01-22 22:27] LABS: CHLORIDE 109 mmol/L (98-107); POTASSIUM 3.9 mmol/L (3.6-5.2); SODIUM 143 mmol/L (132-148)
[2017-01-22 22:28] LABS: INR 1.1
[2017-01-22 22:29] LABS: BILIRUBIN,TOTAL 1.1 mg/dL (0.2-1.3); GFR AFRICAN-AMERICAN > 60
[2017-01-22 22:30] LABS: ALKALINE PHOSPHATASE 75 U/L (38-126); ALT/SGPT 19 U/L (9-52); AST/SGOT 20 U/L (14-36); BLOOD UREA NITROGEN 6 mg/dL (7-17); CALCIUM 8.6 mg/dl (8.6-10.4); CARBON DIOXIDE 22 mmol/L (22-30); GLUCOSE,RANDOM 93 mg/dL (65-105); TOTAL PROTEIN 8.4 g/dL (6.3-8.3)
--- NOTE | 2017-01-22 22:34 | C.PDOC ---
History Of Present Illness 26 year old female who presents to the ER with a complaint of sudden onset of diarrhea and vomiting that began this afternoon, associated with epigastric pain and anterior chest pain. Patient reports she has family members at home with the same symptoms. Patient is also complaining of pain to the lower extremities; denies recent injury, fever, or chills. Chief Complaint (Nursing): Abdominal Pain History Per: Patient History/Exam Limitations: no limitations Onset/Duration Of Symptoms: Hrs Current Symptoms Are (Timing): Still Present Location Of Pain/Discomfort: Epigastric Radiation Of Pain To:: None Quality Of Discomfort: Unable To Describe Associated Symptoms: Nausea, Vomiting, Diarrhea. denies: Fever, Chills Exacerbating Factors: None Alleviating Factors: None Recent travel outside of the [place]: No Abnormal Vaginal Bleeding: No Past Medical History Reviewed: Historical Data, Nursing Documentation, Vital Signs Vital Signs: Last Vital Signs Temp 98.7 F 01/23/17 00:28 Pulse 82 01/23/17 00:28 Resp 20 01/23/17 00:28 BP 110/74 01/23/17 00:28 Pulse Ox 100 01/23/17 00:28 - Medical History PMH: Asthma, HTN Surgical History: - [facility] Procedures DRAINAGE OF LOWER JAW, OPEN APPROACH (10/22/16) Family History: States: Unknown Family Hx - Social History Hx Tobacco Use: No Hx Alcohol Use: Yes Hx Substance Use: No - Immunization History Hx Tetanus Toxoid Vaccination: No Hx Influenza Vaccination: No Hx Pneumococcal Vaccination: No Review Of Systems Constitutional: Negative for: Fever, Chills Gastrointestinal: Positive for: Vomiting, Abdominal Pain, Diarrhea. Negative for: Nausea Musculoskeletal: Positive for: Leg Pain Physical Exam - Physical Exam Appears: Non-toxic Skin: Normal Color, Warm, Dry Head: Atraumatic, Normacephalic Oral Mucosa: Moist Chest: Symmetrical, No Tenderness Cardiovascular: Rhythm Regular, No Murmur Respiratory: Normal Breath Sounds, No Rales, No Rhonchi, No Wheezing Gastrointestinal/Abdominal: Soft, Tenderness (Epigastric), No Guarding, No Rebound Extremity: Normal ROM (x4) Neurological/Psych: Oriented x3, Normal Speech, Normal Cognition ED Course And Treatment - Laboratory Results Result Diagrams: 01/22/17 22:13 01/22/17 22:13 O2 Sat by Pulse Oximetry: 98 (Room air) Pulse Ox Interpretation: Normal Progress Note: EKG ordered. Benadryl, toradol, zofran, and IV fluids administered. Disposition Counseled Patient/Family Regarding: Diagnosis - Disposition Referrals: at [facility] [Outside] Disposition: HOME/ ROUTINE Disposition Time: 02:05 Condition: STABLE Prescriptions: Ondansetron ODT [Zofran ODT] 1 odt PO BID PRN #6 odt PRN Reason: Nausea/Vomiting Phenobarb/Hyoscy/Atropine/Scop [ Tablet] 16.2 mg PO Q6 #10 tablet Instructions: Gastroenteritis (ED), Acute Nausea and Vomiting (ED), Acute Diarrhea (ED) Forms: [employer] (Estonian) - POA Present On Arrival: None - Clinical Impression Clinical Impression: Nausea, Vomiting, Diarrhea, Abdominal pain, Gastroenteritis - Scribe Statement The provider has reviewed the documentation as recorded by the Scribarnold Thurman All medical record entries made by the Scribe were at my direction and personally dictated by me. I have reviewed the chart and agree that the record accurately reflects my personal performance of the history, physical exam, medical decision making, and the department course for this patient. I have also personally directed, reviewed, and agree with the discharge instructions and disposition.
[2017-01-22] MEDS ORDERED: Iodixanol 320 MG/ML 100 ML BOTTLE IV ONE (23:14)
[2017-01-23] MEDS ORDERED: Nalbuphine 20 mg/ml Inj (1 ml) IVP STA (00:19)
[2017-01-23 00:34] VITALS: RESP 20
--- NOTE | 2017-01-23 01:49 | CT ---
EXAM: CT Angiography Chest With Intravenous Contrast CLINICAL HISTORY: 26 years old, female; Pain; Chest pain and other: Both leg pain and heavyness; Additional info: Chest pain/ elevated d-dimer TECHNIQUE: Axial computed tomographic angiography images of the chest with intravenous contrast using pulmonary embolism protocol. All CT scans at this facility use one or more dose reduction techniques, viz.: automated exposure control; ma/kV adjustment per patient size (including targeted exams where dose is matched to indication; i.e. head); or iterative reconstruction technique. MIP reconstructed images were created and reviewed. Coronal and sagittal reformatted images were created and reviewed. CONTRAST: 100 mL of [id number] administered intravenously. COMPARISON: No relevant prior studies available. FINDINGS: Pulmonary arteries: No pulmonary embolism. Aorta: No aneurysm. No dissection. Lungs: No consolidation. Pleural space: No significant effusion. No pneumothorax. Heart: No cardiomegaly. No significant pericardial effusion. Bones/joints: No acute fracture. No dislocation. Soft tissues: Unremarkable. Lymph nodes: No pathologically enlarged lymph nodes. IMPRESSION: 1. No CT evidence of pulmonary embolism.
[2017-01-23 02:16] VITALS: BP 121/78; PULSE 83; TEMP 98.1; O2SAT 99
--- NOTE | 2017-01-25 13:39 | CARD ---
APPROVED REPORT EKG Measurement Heart [id number] <Conclusion> Normal sinus rhythm Normal ECG
== END 2017-01-23 02:28 | disposition home or self-care (01) ==
LOC: C.ER 21:01
DX: K52.9 Noninfective gastroenteritis and colitis, unspecified (principal); R11.2 Nausea with vomiting, unspecified; R10.13 Epigastric pain
CPT/HCPCS: 71275; 80053; 81001; 83690; 84484; 85025; 85378; 85610; 85730; 96374; 96375; 96376; 99285; J1200; J1885; J2405; J7040; Q9967

== ENCOUNTER 2018-02-14 17:13 | Emergency (ER) | payer OTHER ==
[2018-02-14 17:23] VITALS: O2SAT 99
--- NOTE | 2018-02-14 17:52 | C.PDOC ---
History Of Present Illness 27 y/o female, w/PMHx of complex regional pain syndrome, presents to the ER complaining of right arm pain. Patient states that she was evaluated for right arm pain at [facility] yesterday. Patient had bloodwork, X-Rays, CT- neck/ chest, and MRI - Right Extremity. Patient reports that she tried to contact her paperhanger and painter, Dr. Ki Olmstead but she was unsuccessful. Denies having fever and chills. Time Seen by Provider: 02/14/18 17:36 Chief Complaint (Nursing): Upper Extremity Problem/Injury History Per: Patient History/Exam Limitations: no limitations Onset/Duration Of Symptoms: Days Current Symptoms Are (Timing): Still Present Severity: Moderate Past Medical History Reviewed: Historical Data, Nursing Documentation, Vital Signs Vital Signs: Last Vital Signs Temp 98.6 F 02/14/18 17:16 Pulse 62 02/14/18 17:16 Resp 19 02/14/18 17:16 BP 100/64 02/14/18 17:16 Pulse Ox 99 02/14/18 17:16 - Medical History PMH: Asthma, HTN Surgical History: - [facility] Procedures DRAINAGE OF LOWER JAW, OPEN APPROACH (10/22/16) Family History: States: No Known Family Hx - Social History Hx Tobacco Use: No Hx Alcohol Use: Yes Hx Substance Use: No - Immunization History Hx Tetanus Toxoid Vaccination: No Hx Influenza Vaccination: No Hx Pneumococcal Vaccination: No Review Of Systems Except As Marked, All Systems Reviewed And Found Negative. Constitutional: Negative for: Fever, Chills Musculoskeletal: Positive for: Arm Pain (right arm pain) Physical Exam - Physical Exam Appears: Non-toxic, No Acute Distress Skin: Normal Color, Warm, Dry Head: Atraumatic, Normacephalic Eye(s): bilateral: Normal Inspection Nose: Normal Oral Mucosa: Moist Neck: Supple Chest: Symmetrical Cardiovascular: Rhythm Regular Respiratory: Normal Breath Sounds, No Rales, No Rhonchi, No Wheezing Extremity: No Normal ROM (unable to lift RUE), Capillary Refill (< 2 seconds), Swelling (mild swelling to right hand) Pulses: Left Radial: Normal, Right Radial: Normal Neurological/Psych: Oriented x3, Normal Speech ED Course And Treatment O2 Sat by Pulse Oximetry: 99 (RA) Pulse Ox Interpretation: Normal Medical Decision Making Medical Decision Making: Impression: right arm pain from Complex Regional Pain Syndrome Patient does not want pain medication at this time, she requests to see pain management. Several attempts made to reach Dr Kathia Olmstead without success. Inform ED director Dr Whitfield unable to contact pain management. She recommended trying another pain management Arturo Ashley. I spoke with Dr Guan who states he can see the patient in his office next Monday 02/19 or tomorrow in his [place] office. I inform the patient of these options and she states she will travel to [place] to be seen tomorrow. The patient remained stable and the information given on discharge papers Disposition Counseled Patient/Family Regarding: Diagnosis, Need For Followup - Disposition Referrals: Arturo Guan MD [Staff Provider] - Disposition: HOME/ ROUTINE Disposition Time: 18:45 Condition: STABLE Additional Instructions: Follow up with Pain management in [place] call [phone] Instructions: Chronic Pain (DC) Forms: [facility] (Slovenian) - POA Present On Arrival: None - Clinical Impression Clinical Impression: Complex regional pain syndrome i of right upper limb - PA / HIGHWAY PATROL COMMANDER / Resident Statement MD/DO has reviewed & agrees with the documentation as recorded. - Scribe Statement The provider has reviewed the documentation as recorded by the Dennis Leroy Provider Attestation All medical record entries made by the Dennis were at my direction and personally dictated by me. I have reviewed the chart and agree that the record accurately reflects my personal performance of the history, physical exam, medical decision making, and the department course for this patient. I have also personally directed, reviewed, and agree with the discharge instructions and disposition.
[2018-02-14 18:48] VITALS: BP 102/70; PULSE 81; RESP 18; TEMP 98.9
== END 2018-02-14 18:48 | disposition home or self-care (01) ==
LOC: C.ER 17:13
DX: G90.511 Complex regional pain syndrome I of right upper limb (principal)

== ENCOUNTER 2018-09-30 13:10 | Emergency (ER) | payer OTHER ==
[2018-09-30 13:28] VITALS: BMI 24.0
[2018-09-30 13:32] VITALS: BP 118/76; PULSE 98; RESP 17; TEMP 99.2; O2SAT 100
[2018-09-30 14:13] LABS: SQUAMOUS EPITHIAL 7 /hpf (0-5); URINE BACTERIA OCC (<OCC); URINE BILIRUBIN NEGATIVE (NEGATIVE); URINE BLOOD NEGATIVE (NEGATIVE); URINE CLARITY Hazy (Clear); URINE COLOR Yellow (YELLOW); URINE GLUCOSE (UA) NORMAL (Normal); URINE LEUKOCYTE ESTERASE NEG Leu/uL (Negative); URINE PROTEIN NEGATIVE (NEGATIVE); URINE UROBILINOGEN NORMAL mg/dL (0.2-1.0)
[2018-09-30 14:14] LABS: HCG,QUALITATIVE URINE POSITIVE (NEGATIVE)
--- NOTE | 2018-09-30 14:23 | C.PDOC ---
History Of Present Illness 28 year old female with PMH HTN, lupus, and complex regional pain syndrome presents to the emergency department with complaints of suprapubic and lower back pain x 2 days which began after lifting laundry. Patient is concerned because last time she had a similar pain she found out she was . LMP 08/30/18. Patient denies urinary symptoms, fever, chills, chest pain, shortness of breath, N/V/D, and vaginal bleeding. Time Seen by Provider: 09/30/18 13:34 Chief Complaint (Nursing): Female Genitourinary History Per: Patient History/Exam Limitations: no limitations Onset/Duration Of Symptoms: Days (2) Current Symptoms Are (Timing): Still Present Quality Of Discomfort: "Pain" Associated Symptoms: Back Pain, Other (suprapubic pain). denies: Fever, Chills, Nausea, Vomiting, Diarrhea, Chest Pain, Urinary Symptoms Past Medical History Reviewed: Historical Data, Nursing Documentation, Vital Signs Vital Signs: Last Vital Signs Temp 99.2 F 09/30/18 13:30 Pulse 98 H 09/30/18 13:30 Resp 17 09/30/18 13:30 BP 118/76 09/30/18 13:30 Pulse Ox 100 09/30/18 13:30 Primary Care Provider: Sandra Han - Medical History PMH: Asthma, HTN Surgical History: - [facility] Procedures DRAINAGE OF LOWER JAW, OPEN APPROACH (10/22/16) Family History: States: No Known Family Hx - Social History Hx Tobacco Use: No Hx Alcohol Use: Yes Hx Substance Use: No - Immunization History Hx Tetanus Toxoid Vaccination: Yes Hx Influenza Vaccination: No Hx Pneumococcal Vaccination: No Review Of Systems Except As Marked, All Systems Reviewed And Found Negative. Constitutional: Negative for: Fever, Chills Cardiovascular: Negative for: Chest Pain Respiratory: Negative for: Cough, Shortness of Breath Gastrointestinal: Positive for: Abdominal Pain (suprapubic). Negative for: Nausea, Vomiting, Diarrhea Musculoskeletal: Positive for: Back Pain (lower back) Physical Exam - Physical Exam Appears: Non-toxic, No Acute Distress Skin: Normal Color, Warm, Dry Head: Atraumatic, Normacephalic Eye(s): bilateral: Normal Inspection Neck: Normal, Supple Chest: Symmetrical Gastrointestinal/Abdominal: Soft, No Tenderness, No Guarding, No Rebound Back: No CVA Tenderness, No Paraspinal Tenderness, Other (Full ROM of the spine) Extremity: Normal ROM Neurological/Psych: Oriented x3, Normal Speech, Normal Cognition, Normal Motor, Normal Sensation Gait: Steady ED Course And Treatment - Laboratory Results Lab Results: Urine Color Yellow (YELLOW) 09/30/18 14:01 Urine Clarity Hazy (Clear) 09/30/18 14:01 Urine pH 5.0 (5.0-8.0) 09/30/18 14:01 Ur Specific [place] 1.012 (1.003-1.030) 09/30/18 14:01 Urine Protein Negative mg/dL (NEGATIVE) 09/30/18 14:01 Urine Glucose (UA) Normal mg/dL (Normal) 09/30/18 14:01 Urine Ketones Negative mg/dL (NEGATIVE) 09/30/18 14:01 Urine Blood Negative (NEGATIVE) 09/30/18 14:01 Urine Nitrate Positive (NEGATIVE) H 09/30/18 14:01 Urine Bilirubin Negative (NEGATIVE) 09/30/18 14:01 Urine Urobilinogen Normal mg/dL (0.2-1.0) 09/30/18 14:01 Ur Leukocyte Esterase Neg Siva/uL (Negative) 09/30/18 14:01 Urine WBC (Auto) 2 /hpf (0-5) 09/30/18 14:01 Urine RBC (Auto) 1 /hpf (0-3) 09/30/18 14:01 Ur Squamous Epith Cells 7 /hpf (0-5) H 09/30/18 14:01 Urine Bacteria Occ (<OCC) H 09/30/18 14:01 Urine HCG, Qual Positive (NEGATIVE) 09/30/18 14:01 Urine HCG, Qual Positive (NEGATIVE) 09/30/18 14:01 O2 Sat by Pulse Oximetry: 100 (RA) Pulse Ox Interpretation: Normal Progress Note: Plan: HCG Qualitative Urine. Urinalysis Medical Decision Making Medical Decision Making: Will check urine for possible UTI or , no concern for other acute abdominal processes given benign exam. Back pain likely musculoskeletal, imaging not indicated at this time given short duration of symptoms and absence of red flags. Urine results positive for UTI and . Discussed results with patient and she will follow up with OBGYN. Given rx for macrobid, return precautions discussed. For back pain, recommend conservative management with rest, gentle exercise, OTC pain meds Disposition Counseled Patient/Family Regarding: Studies Performed, Diagnosis, Need For Followup, Rx Given - Disposition Disposition: HOME/ ROUTINE Disposition Time: 14:20 Condition: GOOD Additional Instructions: Please follow up with your OBGYN within 1 week Prescriptions: Nitrofurantoin Macrocrystals [Macrobid] 100 mg PO BID #10 cap Instructions: Urinary Tract Infection, Adult (DC), Care Forms: [id number] (Ukrainian) - Clinical Impression Clinical Impression: UTI (urinary tract infection), - PA / MANAGER NIGHT / Resident Statement MD/DO has reviewed & agrees with the documentation as recorded. - Scribe Statement The provider has reviewed the documentation as recorded by the Scribe (Thaddeus Cross) All medical record entries made by the Scribe were at my direction and personally dictated by me. I have reviewed the chart and agree that the record accurately reflects my personal performance of the history, physical exam, medical decision making, and the department course for this patient. I have also personally directed, reviewed, and agree with the discharge instructions and disposition.
== END 2018-09-30 14:27 | disposition home or self-care (01) ==
LOC: C.ER 13:10
DX: O23.41 Unspecified infection of urinary tract in pregnancy, first trimester (principal); Z3A.00 Weeks of gestation of pregnancy not specified